=== PATIENT | female | born 1950 | race Caucasian/White ===

== ENCOUNTER → 2022-01-10 | Outpatient (CLI) | payer MEDICARE ==
--- NOTE | 2022-01-10 12:47 | P.PAINPG ---
PQRS Measure Charge Sheet Comment: HISTORY OF PRESENT ILLNESS: 71 yr old female as a referral from Dr. Cottrell events today with severe and chronic LBP 1 year secondary to DDD, disc bulges, neural foraminal stenoses and facet arthropathy for evaluation. She states her pain level is 10 out of 10 in intensity every morning, localized to the lower aspect of her lumbar spine, stabbing in character with radiation of pain to the right buttock and right lower extremity. Pain is provoked with inactivity. Pain is relieved with medications ([place], ibuprofen, Tylenol arthritis OTC), topicals, chiropractic treatments monthly, repositioning and rest. PMH: OA PSH: Cholecystectomy SH: No tobacco use, Occasional ETOH use, No illicit drug use. 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 FH: Non contributory All: NKDA Meds: See list REVIEW OF ORGAN SYSTEMS: CONSTITUTIONAL: No fevers or chills. No recent weight loss. HEENT: No visual acuity loss, eye pain, difficulties with hearing. No nosebleeds. No difficulty swallowing. RESPIRATORY: Denies any troubles with breathing or dyspnea on exertion. CARDIOVASCULAR: Denies any chest pain, palpitations, or recent heart attacks. GASTROINTESTINAL: Denies fatty food intolerance. Has change in bowel habits and gas bloat. GENITOURINARY: Denies any blood in urine. Has increased urinary frequency. NEUROLOGICAL: + numbness and tingling along the distal extremities. No seizure disorders or headaches. MUSCULOSKELETAL: + back pain SKIN: No skin cancer. No rash. PSYCHIATRIC: Denies current depression or suicidal thoughts. ENDOCRINE: Denies current thyroid disorders. Denies any blood sugar glucose intolerance. HEME/LYMPHATIC: Denies any lumps and bumps around the neck. History of deep venous thrombosis. ALLERGY/IMMUNOLOGY: No immunoglobulin therapy. No immune deficiencies. BREAST: Denies current breast lumps, pain or nipple discharge. Physical Examinations : Constitutional : Cooperative , not in acute distress . HEENT: Neck supple. No Lymphadenopathy. Normal thyroid size . Eyes no ptosis , no icterus, no photophobia . Hearing intact. Normal oropharynx. No Thrush. Respiratory : Chest clear to auscultations bilaterally. No wheezing. No rhonchi. Cardiovascular : Regular rate and rhythm , S1 / S2. No S3 . No S4. Gastrointestinal : Abdomen soft. No tenderness. Bowel sounds x 4. No organomegaly . Genitourinary : Deferred. Neurologic : Cranial nerve II to XII intact. No focal neurological deficits. Psychiatric : alert & oriented x 3. Matching mood & appropriate affect. Judgment & insight intact. Lymphatic No Lymphadenopathy. Musculoskeletal : Cervical Spine Motor strength in the deltoid and biceps: Normal right side. Normal Left side Motor strength biceps and the wrist extensors: Normal right side . Normal left side Motor strength in the triceps muscle: Normal right side. Normal left side Deep tendon reflexes: Normal at the biceps. Normal at Brachioradialis. Normal at triceps Cervical facet loading test: positive bilaterally Spurling test: positive bilaterally Neck distraction test: positive bilaterally Zack sign: positive bilaterally Lumbar spine Motor strength lower extremities ,thigh and legs 5/5 Right side , 5/5 Left side Deep tendon reflexes : Normal Knee Jerk. Normal Ankle Jerk Vertebral body tenderness over L4 Lumbar facet Loading Test: positive Right / positive Left Range of motion of the lumbar spine Flexion 30 degrees, extension 10 degrees Straight Leg Raise test: Left/ Right positive at degree Cholo test: positive right / positive left. Severe tenderness over the Sacroiliac joint on the Right / Left sides Gaenslen test: positive bilaterally Seated flexion test: positive bilaterally. Sacral spine : Severe tenderness over the Sacroiliac joint: right side / left side Range of motion: Flexion of the lumbar spine <60 degrees Range of motion: Extension of the lumbar spine <20 degrees Gaenslen's Test positive Kristian's Test positive Cholo test: positive right side / left side Thigh Thrust Test Sacral Thrust Test Imaging: MRI without contrast of the lumbar spine from 12/08/21 reviewed. Assessment/ Plan : Lumbar spondylosis Recommendation of JOSH L4-L5. May need a series of injections, up to 3 within a six-month timeframe, for optimal pain relief. Risks, benefits of procedure discussed and patient verbalized understanding. Denies aspirin or anti- coagulant use or medical history of diabetes. All questions answered. I have spent greater than 50 minutes on patient care today. Dr Gar was available by phone for the evaluation of this patient. The time was used to review the medical records including relevant urine studies and Prescription history (MAPs), review of the available imaging, evaluation and examination of the patient, coordination of care with the medical staff and if applicable referring physicians, as well as creation of the medical record Controlled Substance Measures - Controlled Substance Measures Is patient prescribed a controlled substance at discharge?: No
[2022-01-10 15:03] VITALS: BP 150/67; PULSE 61; RESP 18; TEMP 98
== END ==
LOC: PNWHC3 11:48
PROVIDERS: ATTEND Specialist
DX: M51.36 Other intervertebral disc degeneration, lumbar region (principal); M48.062 Spinal stenosis, lumbar region with neurogenic claudication; M51.26 Other intervertebral disc displacement, lumbar region; M51.24 Other intervertebral disc displacement, thoracic region; G89.29 Other chronic pain; M19.90 Unspecified osteoarthritis, unspecified site
CPT/HCPCS: 99202

== ENCOUNTER 2022-01-16 11:52 | Day surgery (SDC) | payer MEDICARE ==
[2022-01-16] MEDS ORDERED: LACTATED RINGERS 1,000 ML IV ONE (12:18)
[2022-01-16 12:23] VITALS: TEMP 97.3
[2022-01-16] MEDS ORDERED: MIDAZOLAM 2 MG/2 ML VIAL ONE (12:53)
[2022-01-16] MEDS ORDERED: fentaNYL (PF) 50 MCG/ML 2 ML AMP ONE (12:53)
[2022-01-16] MEDS ORDERED: methylPREDNISolone ACETATE 40 MG/ML 1 ML VIAL ONE (12:53)
[2022-01-16] MEDS ORDERED: IOPAMIDOL M200 10 ML VIAL ONE (12:53)
--- NOTE | 2022-01-16 13:04 | P.PCN ---
Date of Procedure: 01/16/22 Procedure(s) Performed: PREOPERATIVE DIAGNOSIS: 1- Lumbar Degenerative Disc Diseases 2-Lumbar spondylosis with Facet arthropathy without myelopathy POSTOPERATIVE DIAGNOSIS: Same as preop diagnosis. PROCEDURE 1. Lumbar epidural steroid injection under fluoroscopic guidance at the L4-5 level. (Fluoroscopy imaging was available in radiology department) 2. Lumbar epidurogram. ANESTHESIA: Local with 1% lidocaine 3 ml and , moderate sedation with intravenous Versed 1 mg ,and fentanyle 50 Mcg EBL: Minimal PROCEDURE INDICATION: The patient with low back pain and radiculitis symptoms unresponsive to conservative treatment. Fluoroscopy was used to optimize visualization of the needle placement and to maximize safety. PROCEDURE DESCRIPTION / TECHNIQUE: The patient was seen and identified in the preoperative area. Risks, benefits, complications including but not limited to infections ,bleeding ,allergic reaction to the medications ,nerve damage and not complete pain releife , and alternatives were discussed with the patient. The patient agreed to proceed with the procedure and signed the consent. IV was started, and vital signs were stable. Patient was taken to the OR and time out was completed. The patient was placed in the prone position on procedure table and a pillow was placed under the abdomen to reduce lumbar lordosis. The lumbosacral area was prepped and draped in the usual sterile fashion.ere closely monitored during the procedure. Con scious sedation was used during the procedure to decrease patients anxiety. Vital signs was monitered during the entire procedure. Using anterior-posterior fluoroscopy, the L4-5 interlaminar space was identified and the skin over this site was marked and then infiltrated with 1% lidocaine subcutaneously. Subsequently, a 20-gauge Tuohy epidural needle was inserted and advanced toward the epidural space using the ``Loss of resistance technique and guided by AP and lateral fluoroscopy. The correct needle position in the epidural space was verified with the injection of 2 mL of the water soluble contrast dye Isovue 200 contrast and observing an excellent epidurogram with the epidural spread of the dye, after negative aspiration for blood and CSF and in the absence of paresthesias. Again after negative aspiration, a 6 ml mixture containing 40 mg of Depo-medrol , and 2 ml of preservative free Normal Saline, and 2 ml of preservative free lidocaine 1% solution was injected and a washout o f epidurogram was seen. Needle was withdrawn intact, skin was cleansed, and bandages were applied. COMPLICATIONS: None DISPOSITION / PLANS: The patient was placed in a supine position and transferred to the recovery area in a stable condition for observation. There was no evidence of lower extremity motor or sensory deficit after the procedure. Patient was discharged from the recovery room after meeting discharge criteria. Home discharge instructions were given to the patient by the staff. The patient was reexamined prior to discharge. The patient will schedule a follow up in the clinic in 2-4 weeks.
[2022-01-16] MEDS ORDERED: IV FLUID CONTINUATION 800 ML IV ONE (13:07)
[2022-01-16 13:15] VITALS: RESP 16
[2022-01-16 13:25] VITALS: BP 145/75; PULSE 64
--- NOTE | 2022-01-16 17:01 | FL ---
Fluoroscopy HISTORY: Pain 1 seconds fluoroscopy time supplied to the referring clinician. 1 intraoperative C-arm images docume nt the procedure. See dictated report from anesthesia.
== END 2022-01-16 13:37 | disposition home or self-care (01) ==
LOC: ORPAIN 11:52
PROVIDERS: ATTEND Specialist
DX: M51.16 Intervertebral disc disorders with radiculopathy, lumbar region (principal); M47.26 Other spondylosis with radiculopathy, lumbar region
CPT/HCPCS: 62323; J2250; J1030; J3010; Q9966

== ENCOUNTER 2022-02-08 06:00 | Day surgery (SDC) | payer MEDICARE ==
[2022-02-08 06:25] VITALS: RESP 16; TEMP 98.2
[2022-02-08] MEDS ORDERED: IOPAMIDOL M200 10 ML VIAL ONE (06:48)
[2022-02-08] MEDS ORDERED: methylPREDNISolone ACETATE 40 MG/ML 1 ML VIAL ONE (06:48)
--- NOTE | 2022-02-08 07:07 | P.PCN ---
Date of Procedure: 02/08/22 Description of Procedure: Procedure: 1. Right sided L4-L5 Epidural steroid injection under fluoroscopic guidance, 2. Lumbar epidurogram PREOPERATIVE DIAGNOSIS: Lumbar degenerative disc disease, and Lumbar radiculopathy. POSTOPERATIVE DIAGNOSIS: Lumbar degenerative disc disease, and Lumbar radiculopathy. SURGEON: [place] ANESTHESIA: Local with 1% lidocaine, and IV sedation: None EBL: None. Specimen removed: None Fluoroscopic image: saved to electronic medical records PROCEDURE INDICATION: The patient had history of Lumbar degenerative disc disease and Lumbar radiculopathy. Patient had a previous epidural steroid injection with marginal pain relief. Failed to conservative therapy. Came here for repeat epidural steroid injection. PROCEDURE DESCRIPTION: The patient was seen and identified in the preoperative area. Risks, benefits, complications, and alternatives were discussed with the patient. The patient agreed to proceed with the procedure and signed the consent. IV was started, and vital signs were stable. Patient was taken to the procedure area, and time out was completed. The patient was placed in the prone position on procedure table and a pillow was placed under the abdomen to reduce lumbar lordosis. The lumbosacral area was prepped an d draped in the usual sterile fashion. Critical pause was taken. Vital signs were closely monitored during the procedure. Using anterior-posterior fluoroscopy, the right sided L4-L5 interlaminar space was identified, and skin and deeper tissues were localized with 1% lidocaine. Using anterior-posterior fluoroscopy, lateral fluoroscopy, and [id number] technique, a 20 gauge 3.5 Tuohy epidural needle entered the epidural space. After negative aspiration of CSF and blood with no paresthesias, 1 ml of [id number] contrast dye was injected and an excellent epidurogram was seen. Again after negative aspiration of CSF and blood with no paresthesias, 10 mL of block solution was injected into the epidural space. Block solution contained 40 mg of Depo-Medrol, and 9 mL of preservative-free normal saline. Needle was withdrawn intact, skin was cleansed, and bandages were applied. COMPLICATIONS: None. DISPOSITION / PLANS: The patient was placed in a supine position and transferred to the recovery area in a stable condition for observation. Patient was discharged from the recovery room after meeting discharge criteria. Home discharge instructions given to the patient by the staff. The patient was reexamined prior to discharge. The patient will schedule a follow up in the clinic in 4 weeks. Note: If patient not noticed any good pain relief with the epidural steroid injection, plan to do the right side sacroiliac joint injection. Discussed with the patient, and patient understood.
[2022-02-08] MEDS ORDERED: LACTATED RINGERS 1,000 ML IV SCH (07:15)
[2022-02-08 07:20] VITALS: BP 129/65; PULSE 56
--- NOTE | 2022-02-08 07:47 | FL ---
Fluoroscopy History: LUM EPID STEROID INJ LUM EPID STEROID INJ. [address] Jameson. 1 image.
== END 2022-02-08 07:25 | disposition home or self-care (01) ==
LOC: ORPAIN 06:00
DX: M51.16 Intervertebral disc disorders with radiculopathy, lumbar region (principal); F32.A Depression, unspecified; M19.90 Unspecified osteoarthritis, unspecified site; Z90.49 Acquired absence of other specified parts of digestive tract
CPT/HCPCS: 62323; J1030; Q9966

== ENCOUNTER → 2022-03-07 | Outpatient (CLI) | payer MEDICARE ==
[2022-03-07 10:28] VITALS: BP 112/69; PULSE 67; RESP 18; TEMP 98.7
--- NOTE | 2022-03-07 13:35 | P.PAINPG ---
PQRS Measure Charge Sheet Comment: A 71 yr old female with a history of severe and chronic low back pain secondary to lumbar degenerative disc diseases and lumbar spondylosis with facet arthropathy presents today for evaluation s/p R paramedian L4-L5. Pt states she experienced 100% pain relief x last 4 weeks s/p procedure. Pain level is cur rently at 0/10 in intensity. Pain is provoked by walking for periods of 30 min or more. Pain is alleviated with medications ([place] 5/325mg, Baclofen, Ibuprofen), injections, chiropractic treatments weekly (last visit 5 days ago), repositioning and rest. Interventional pain procedures completed include R paramedian L4-L5 x 1 Patient is currently on [place] 5/325mg, Baclofen, Ibuprofen Patient denies any side effects of the medication(s), denies excessive drowsiness or sleepiness, denies suicidal ideation and reports that the current pain medication is helping to control the pain and improve activities of daily living. Patient denies any motor or sensory deficits. Patient denies any fever or night sweats, denies any change in the bowel movements or urination. Physical Examination: -Constitutional: Cooperative. Not in acute distress . - Neurologic: Cranial nerve II to XII intact. No focal neurological deficits. - Psychatric: Alert & oriented x 3. Matching mood & appropriate affect. Leydi gment and insight intact. - Musculoskeletal: Cervical spine: Muscle bulk/ tone/ strength in the bilateral upper extremities normal Vertebral body tenderness to palpation over Spurling test positive Distraction test positive Facet loading test positive Thoracic spine Muscle bulk / tone/ strength in the bilateral paraspinal muscles normal Vertebral body tender to palpation over Facet loading test positive Lumbar spine: Motor bulk/ tone/ strength lower extremities , thigh and legs : 5/5 Deep tendon reflexes : Normal Knee Jerk. Normal Ankle Jerk . Vertebral body tenderness to palpation over L4 w deep palpation Lumbar Facet Loading Test positive Straight Leg Raise: positive at 30 degrees right side/ left side Gaenslen's Test positive Sacral spine : Severe tenderness over the Sacroiliac joint: right side / left side Range of motion: Flexion of the lumbar spine <60 degrees Range of motion: Extension of the lumbar spine <20 degrees Gaenslen's Test positive Kristian's Test positive Cholo test: positive right side / left side Thigh Thrust Test Sacral Thrust Test Assessment and plan: Chronic low back pain secondary to lumbar degenerative disc disease , lumbar spondylosis with facet arthropathy without myelopathy Pt exhibited sufficient and satisfactory pain relief w the prior procedure. She will continue home pain mgmt modifying factors in the interim w exacerbations and may return to our clinic on an as needed basis All patient questions answered MAPS reviewed and it was appropriate. I have spent less than 30 minutes on patient care today. Dr Gar was available by phone for the evaluation of this patient. The time was used to review the medical records including relevant urine studies and Prescription history (MAPs), review of the available imaging, evaluation and examination of the patient, coordination of care with the medical staff and if applicable referring physicians, as well as creation of the medical record PQRS Narrative: Hx Alcohol Use (MH) Yes: ONECE A WEEK Home Medications: Ambulatory Orders Eszopiclone [Lunesta] 3 mg PO HS 01/16/22 Sertraline [Zoloft] 50 mg PO DAILY 01/16/22 estradioL 0.25 mg PO DAILY 01/16/22 Baclofen 5 mg PO DAILY 30 Days #30 tab 01/22/22 HYDROcodone/APAP 5-325MG [[place] 5-325] 1 tab PO Q6HR PRN 3 Days #12 tab 01/22/22 Controlled Substance Measures - Controlled Substance Measures Is patient prescribed a controlled substance at discharge?: No
== END ==
LOC: PNWHC3 09:59
PROVIDERS: ATTEND Specialist
DX: M51.36 Other intervertebral disc degeneration, lumbar region (principal); G89.29 Other chronic pain; M47.816 Spondylosis without myelopathy or radiculopathy, lumbar region
CPT/HCPCS: 99211

== ENCOUNTER → 2022-04-23 | Outpatient (CLI) | payer MEDICARE ==
[2022-04-23 12:00] VITALS: BP 120/60; PULSE 64; RESP 18; TEMP 98
--- NOTE | 2022-04-23 14:50 | P.PAINPG ---
Objective - Vital Signs Vital signs: Intake & Output 04/22/22 04/23/22 04/23/22 18:59 06:59 18:59 Weight 68.039 kg PQRS Measure Charge Sheet Comment: A 71 yr old female with a history of severe and chronic low back pain secondary to lumbar degenerative disc diseases and lumbar spondylosis with facet arthropathy without myelopathy presents today for LBP evaluation. 90% pain relief x 6 wks s/p procedure. Pain level is currently at 10/10 in intensity, constant, localized in lower lumbar spine, stabbing/ sharp in character w shooting towards BL hips. Pain is provoked by standing from a sitting position. Pain is alleviated with chiropractic treatments x 6 mo in Mar 2022 (she stopped due to cataract surgery), heat, medications, optical, sitting, walking, repositioning and rest. Pt states pain medication is ineffective and would like to try something else to alleviate pain. Interventional pain procedures completed include ED L4-5 x 2. Patient is currently on Tramadol prn Patient denies any side effects of the medication(s), denies excessive drowsiness or sleepiness, denies suicidal ideation and reports that the current pain medication is helping to control the pain and improve activities of daily living. Patient denies any motor or sensory deficits. Patient denies any fever or night sweats, denies any change in the bowel movements or urination. Physical Examination: -Constitutional: Cooperative. Not in acute distress . - Neurologic: Cranial nerve II to XII intact. No focal neurological deficits. - Psychatric: Alert & oriented x 3. Matching mood & appropriate affect. Judgment and insight intact. - Musculoskeletal: Cervical spine: Muscle bulk/ tone/ strength in the bilateral upper extremities normal Vertebral body tenderness to palpation over Spurling test positive Distraction test positive Facet loading test positive Thoracic spine Muscle bulk / tone/ strength in the bilateral paraspinal muscles normal Vertebral body tender to palpation over Facet loading test positive Lumbar spine: Motor bulk/ tone/ strength lower extremities , thigh and legs : 5/5 Deep tendon reflexes : Normal Knee Jerk. Normal Ankle Jerk . Vertebral body tenderness to palpation over Lumbar Facet Loading Test positive over BL L4-L5> L5-S1 w jump reflex Straight Leg Raise: positive at 30 degrees right side/ left side Gaenslen's Test positive Sacral spine : Severe tenderness over the Sacroiliac joint: right side / left side Range of motion: Flexion of the lumbar spine <60 degrees Range of motion: Extension of the lumbar spine <20 degrees Gaenslen's Test positive Kristian's Test positive Cholo test: positive right side / left side Thigh Thrust Test Sacral Thrust Test Imaging: MRI without contrast from 12/08/21 reviewed Assessment and plan: Chronic low back pain secondary to lumbar degenerative disc disease , lum bar spondylosis with facet arthropathy without myelopathy Recommendation of BL MBB L4-L5, L5-S1 #1. Patient may need a series of injections, up to the RFA, for optimal pain relief. Risks, benefits of procedure discussed and pt verbalized understanding. Denies anticoagulant use or medical history of diabetes. Chronic and current use of high-risk medication (Opioids). The patient was counseled about risk of opioid use, psychological risk associated with opioids and was orally counseled to not overuse , divert or sell medications. Pt is to store medication in a safe location. The patient is counseled against driving while using narcotic medications and also not to use alcohol or any illicit recreational drugs. Patient verbalized understanding that the lack of compliance will result in failure to renew narcotic prescription(s) as well as possible discharge from the clinic Diagnoses, prognosis and treatment options including but not limited to physical therapy, surgical interventions, interventional therapies and medication management including narcotics and adjuvant medication were discussed. All patient questions answered MAPS reviewed and it was appropriate. Opiate agreement signed today 04/23/22 Prescription refill for [place] 7.5/325mg #60 w 1 RF I have spent less than 30 minutes on patient care today. Dr Gar was available by phone for the evaluation of this patient. The time was used to review the medical records including relevant urine studies and Prescription his tory (MAPs), review of the available imaging, evaluation and examination of the patient, coordination of care with the medical staff and if applicable referring physicians, as well as creation of the medical record PQRS Narrative: Hx Alcohol Use (MH) Yes: ONECE A WEEK Home Medications: Ambulatory Orders Eszopiclone [Lunesta] 3 mg PO HS 01/16/22 Sertraline [Zoloft] 50 mg PO DAILY 01/16/22 estradioL 0.25 mg PO DAILY 01/16/22 Baclofen 5 mg PO DAILY 30 Days #30 tab 01/22/22 HYDROcodone/APAP 5-325MG [[place] 5-325] 1 tab PO Q6HR PRN 3 Days #12 tab 01/22/22 HYDROcodone/APAP 7.5-325MG [[place] 7.5-325] 1 tab PO Q12H PRN 30 Days #60 tab 04/23/22 HYDROcodone/APAP 7.5-325MG [[place] 7.5-325] 1 tab PO Q12HR PRN 30 Days #60 tab 04/23/22 Controlled Substance Measures - Controlled Substance Measures Is patient prescribed a controlled substance at discharge?: Yes When asked, does pt state using other controlled substances?: Yes If prescribed controlled substance>3 days was MAPS reviewed?: Yes If Rx opioid, was Start Talking consent form obtained?: Yes Was information provided regarding opioid addiction?: Yes
== END ==
LOC: PNWHC3 08:57
PROVIDERS: ATTEND Specialist
DX: M51.36 Other intervertebral disc degeneration, lumbar region (principal); M47.816 Spondylosis without myelopathy or radiculopathy, lumbar region; G89.29 Other chronic pain; Z79.891 Long term (current) use of opiate analgesic
CPT/HCPCS: 99211

== ENCOUNTER 2022-05-01 05:55 | Day surgery (SDC) | payer MEDICARE ==
[2022-05-01 06:23] VITALS: TEMP 97.3
[2022-05-01] MEDS ORDERED: ROPIVACAINE 5 MG/ML 20 ML AMPULE ONE (06:59)
[2022-05-01] MEDS ORDERED: methylPREDNISolone ACETATE 40 MG/ML 1 ML VIAL ONE (06:59)
--- NOTE | 2022-05-01 07:18 | P.PCN ---
Date of Procedure: 05/01/22 Procedure(s) Performed: PREOPERATIVE DIAGNOSIS : 1- Lumbar spondylosis with Facet Arthropathy without myelopathy . 2- Lumber degenerative disc disease POSTOPERATIVE DIAGNOSIS: 1- Lumbar spondylosis with Facet Arthropathy without myelopathy . 2- Lumber degenerative disc disease PROCEDURE: Diagnostic bilateral L3 , L4 , and L5 medial branch block under fluoroscopy guidance(fluoroscopy images available in the radiology Department ) ( To target the facet joint between bilateral L4-5 , and L5-S1 ) ANESTHESIA: Local infiltration with ropivacaine 0.5% 6 mL only EBL: Minimal COMPLICATION: None PROCEDURE INDICATION: Chronic low back pain secondary to Facet arthropathy unresponsive to conservative treatment. PROCEDURE DESCRIPTION: the patient was seen and identified in the preop holding area , risks and benefits and possible complications of the procedure and alternative were discussed with the patient, and the patient agreed to proceed with the procedure and signed the consent and vital signs monitored duri ng the procedure and fluoroscopy was used to maximize the benefit and accuracy of the needle placement,, patient was taken to the procedure room and placed in prone position vital signs monitored in the back prepped with chlorhexidine X3 then under strict sterile technique using a right oblique fluoroscopy ,the junction of the transverse process and the superior articulating process of the right L3 , L4 , and L5 vertebra which corresponding to the fluoroscopy image of the eye of the Kiko dog on the block side for the medial branches and subsequently , after local infiltration of skin and subcu tissuies with Ropivacaine 0.5 % , one mL at each level ,then 22-gauge Quincke-type needles , 3 needle was used , each one of them placed at the junction of the base of the transverse process and the superior articular process at the appropriate level, and the needle was advanced until the periosteum contacted, needle placement confirmed with AP oblique and lateral view and after appropriate needle placement confirmed, and after negative aspiration for heme and CSF and there was no paresthesia 1-1/2 mL of Ropivacaine 0.5% mixed with 20 mg Depo- Medrol , then half mL injected at each level after negative aspiration the needle subsequently removed and the same procedure repeated for the left side at left side at L3 , L4 and L5 levels. At the end of the procedure and the needles removed and a bandage applied after the skin was cleaned the cleaning solution patient taken to recovery room in stable condition and monitors in the recovery room for 20-30 minutes and discharged home in stable condition after discharge criteria met and patient will follow up with the pain clinic in 2-4 weeks
[2022-05-01 07:39] VITALS: BP 124/67; PULSE 62; RESP 14
--- NOTE | 2022-05-01 08:40 | FL ---
Fluoroscopy History: KASSIE LUM FACET BLOCK kassie lumbar facet 7 sec fl time used
== END 2022-05-01 07:42 | disposition home or self-care (01) ==
LOC: ORPAIN 05:55
PROVIDERS: ATTEND Specialist
DX: M51.36 Other intervertebral disc degeneration, lumbar region (principal); M47.816 Spondylosis without myelopathy or radiculopathy, lumbar region; G89.29 Other chronic pain
CPT/HCPCS: 64494 ×2; 64493; J1030; J2795

== ENCOUNTER 2022-06-05 06:18 | Day surgery (SDC) | payer MEDICARE ==
[~2022-06-05 06:18] MED LIST: LACTATED RINGERS 1,000 ML IV SCH; LIDOCAINE 1% (10MG/ML) FOR IV START INTRADERMA PRN
[2022-06-05 06:44] VITALS: RESP 18; TEMP 96.9
[2022-06-05] MEDS ORDERED: ROPIVACAINE 5 MG/ML 20 ML AMPULE ONE (07:31)
[2022-06-05] MEDS ORDERED: methylPREDNISolone ACETATE 40 MG/ML 1 ML VIAL ONE (07:31)
--- NOTE | 2022-06-05 07:46 | P.PCN ---
Date of Procedure: 06/05/22 Procedure(s) Performed: PREOPERATIVE DIAGNOSIS : 1- Lumbar spondylosis with Facet Arthropathy without myelopathy . 2- Lumber degenerative disc disease POSTOPERATIVE DIAGNOSIS: 1- Lumbar spondylosis with Facet Arthropathy without myelopathy . 2- Lumber degenerative disc disease PROCEDURE: Diagnostic bilateral L3 , L4 , and L5 medial branch block under fluoroscopy guidance(fluoroscopy images available in the radiology Department ) ( To target the facet joint between bilateral L4-5 , and L5-S1 )# 2nd ANESTHESIA: Local infiltration with ropivacaine 0.5% 6 mL only EBL: Minimal COMPLICATION: None PROCEDURE INDICATION: Chronic low back pain secondary to Facet arthropathy unresponsive to conservative treatment. PROCEDURE DESCRIPTION: the patient was seen and identified in the preop holding area , risks and benefits and possible complications of the procedure and alternative were discussed with the patient, and the patient agreed to proceed with the procedure and signed the consent and vital signs monitored during the procedure and fluoroscopy was used to maximize the benefit and accuracy of the needle placement,, patient was taken to the procedure room and placed in prone position vital signs monitored in the back prepped with chlorhexidine X3 then under strict sterile technique using a right oblique fluoroscopy ,the junction of the transverse process and the superior articulating process of the right L3 , L4 , and L5 vertebra which corresponding to the fluoroscopy image of the eye of the Kiko dog on the block side for the medial branches and subsequently , after local infiltration of skin and subcu tissuies with Ropivacaine 0.5 % , one mL at each level ,then 22-gauge Quincke-type needles , 3 needle was used , each one of them placed at the junction of the base of the transverse process and the superior articular process at the appropriate level, and the needle was advanced until the periosteum contacted, needle placement confirmed with AP oblique and lateral view and after appropriate needle placement confirmed, and after negative aspiration for heme and CSF and there was no paresthesia 1-1/2 mL of Ropivacaine 0.5% mixed with 20 mg Depo-Medrol , then half mL injected at each level after negative aspiration the needle subsequently removed and the same procedure repeated for the left side at left side at L3 , L4 and L5 levels. At the end of the procedure and the needles removed and a bandage applied after the skin was cleaned the cleaning solution patient taken to recovery room in stable condition and monitors in the recovery room for 20-30 minutes and discharged home in stable condition after discharge criteria met and patient will follow up with the pain clinic in 2-4 weeks
[2022-06-05 07:54] VITALS: BP 123/64; PULSE 56
--- NOTE | 2022-06-05 09:38 | FL ---
Fluoroscopy INDICATION: Pain FINDINGS: Fluoroscopy time: 8 seconds. Images obtained: 4. IMPRESSIONS: 1. Documentation of fluoroscopy.
== END 2022-06-05 08:05 | disposition home or self-care (01) ==
LOC: ORPAIN 06:18
PROVIDERS: ATTEND Specialist
DX: M47.816 Spondylosis without myelopathy or radiculopathy, lumbar region (principal); M51.36 Other intervertebral disc degeneration, lumbar region
CPT/HCPCS: 64493; 64494; J1030; J2795

== ENCOUNTER → 2022-06-27 | Outpatient (CLI) | payer MEDICARE ==
--- NOTE | 2022-06-27 13:10 | P.PN ---
Subjective Progress Note Date: 06/27/22 At this is follow-up visit for this 72 years old female with a chronic history of severe low back pain she is no swelling lumbar spondylosis with lumbar facet arthropathy and lumbar degenerative disc disease, recently we have done diagnostic medial branch block lumbar area at L4 5 and L5-S1 bilaterally,x2 , she reported that she gets more than 80% improvement of her pain after the first diagnostic medial branch block as she gets similar result after the second block, and she reported that the pain relief lasted for a few hours after the block, she denies any motor or sensory deficits denies any fever or night sweats she denies any change in the bowel movement or urination she continue to use ibuprofen and tramadol for pain and she uses ice and heat for pain she already done chiropractors with only minimal benefit Objective - Vital Signs Vital signs: Intake & Output 06/26/22 06/27/22 06/27/22 18:59 06:59 18:59 Weight 68.039 kg - Exam Physical Examinations : -Constitutiona : Cooperative , not in acute distress . -HEENT : nech : supple , no Lymphadenopathy , normal thyroid size . : eyes : no ptosis , no icterus, no photophobia . - neurologic : Cranial nerve II to XII intact , no focal neurological deffecit . -psychatric : alert , oriented X 3 , appropriate affect , intact judgment and insight . -Lymphatic : no Lymphadenopathy . - musculoskeltal : Lumber spine moter stegnth lower extremities ,thigh and legs 5/5 Right side , 5/5 Left side deep tendon reflexes : normal Knee Jerk , normal ankle Jerk lumber facet Loading Test =positive Right , positive Left Range of motion of the lumbar spine Fl exion 60 ,extension 10 strait leg raising test = negative bilaterally Fabere test= negative bilaterally Assessment and Plan Plan: Assessment and plan= chronic low back pain secondary to lumbar degenerative disc disease , lumbar spondylosis with lumbar facet arthropathy . she had 80% improvement of her low back pain after diagnostic medial branch block lumbar area x2 at L4 5 and L5-S1 She could benefit from RFA of the medial branch lumbar area at L4 5 and L5-S1 bilaterally. Procedure risk and benefits and alternatives discussed with the patient she agreed with proceeding Time with Patient: Less than 30
[2022-06-27 13:19] VITALS: BP 151/76; PULSE 86; RESP 16; TEMP 97.9
== END | disposition home or self-care (01) ==
LOC: PNWHC3 12:34
PROVIDERS: ATTEND Specialist
DX: M51.36 Other intervertebral disc degeneration, lumbar region (principal); M46.96 Unspecified inflammatory spondylopathy, lumbar region; M47.896 Other spondylosis, lumbar region
CPT/HCPCS: 99211

== ENCOUNTER 2022-10-17 12:34 | Day surgery (SDC) | payer MEDICARE ==
--- NOTE | 2022-10-17 11:30 | P.GSHP ---
History of Present Illness H&P Date: 10/17/22 Chief Complaint: History of colon cancer This 72-year-old female with. History of colon cancer. Patient will stay for Port-A-Cath insertion. She is requiring IV infusion therapy. Past Medical History Past Medical History: Cancer, GERD/Reflux, Osteoarthritis (OA) Additional Past Medical History / Comment(s): Arthritis- generalized and back and neck. pain,colon CA, liver mass "spot", sinus issues occasionally. allergies. History of Any Multi-Drug Resistant Organisms: None Reported Past Surgical History: Cholecystectomy, Hysterectomy Additional Past Surgical History / Comment(s): partial hysterectomy just uterus removed, biltateral cataracts removed. Past Anesthesia/Blood Transfusion Reactions: No Reported Reaction Smoking Status: Never smoker - Past Family History Mother Additional Family Medical History / Comment(s): Parkinsons Father Family Medical History: Cancer Additional Family Medical History / Comment(s): prostate Medications and Allergies Home Medications Medication Instructions Recorded Confirmed Type Eszopiclone [Lunesta] 3 mg PO HS 01/16/22 10/11/22 History Sertraline [Zoloft] 100 mg PO DAILY 01/16/22 10/11/22 History estradioL 0.25 mg PO DAILY 01/16/22 10/11/22 History traMADol HCL 50 mg PO DAILY 06/04/22 10/11/22 History Biotin [Ykmp-Ktol-Rmybo] 10,000 mcg PO DAILY 09/04/22 10/11/22 History Ferrous Sulfate [Feosol] 325 mg PO DAILY 09/04/22 10/11/22 History Omeprazole [PriLOSEC] 20 mg PO DAILY 09/04/22 10/11/22 History Acetaminophen [Tylenol Extra 500 mg PO DAILY PRN 10/11/22 10/11/22 History Strength] Allergies Allergy/AdvReac Type Severity Reaction Status Date / Time No Known Allergies Allergy Verified 10/11/22 09:18 Surgical - Exam - General well developed, well nourished, no distress - Eyes PERRL - ENT normal pinna - Neck no masses - Respiratory normal expansion - Cardiovascular Rhythm: regular - Abdomen Abdomen: soft, non tender Assessment and Plan Plan: History of colon cancer. We'll perform Port-A-Cath insertion.
[~2022-10-17 12:34] MED LIST changes: +ACETAMINOPHEN TAB 500 MG TAB PO PRN; +HEPARIN SODIUM,PORCINE/PF 5,000 UNIT/0.5 ML SYRINGE SQ PRN; +Pre Op ABX Message 1 EACH MISC MISCELLANE ONE; +fentaNYL (PF) 50 MCG/ML 2 ML AMP IV PRN
[2022-10-17 13:00] VITALS: RESP 16; TEMP 96.9
[2022-10-17] MEDS ORDERED: ONDANSETRON 4 MG/2 ML VIAL ONE (13:05)
[2022-10-17] MEDS ORDERED: DEXAMETHASONE SOD PHOSPHATE 4 MG/ML 1 ML VIAL IV ONE (13:16)
[2022-10-17] MEDS ORDERED: MIDAZOLAM 2 MG/2 ML VIAL ONE (13:26)
[2022-10-17] MEDS ORDERED: KETOROLAC 15 MG/ML 1 ML VIAL ONE (13:26)
[2022-10-17] MEDS ORDERED: fentaNYL (PF) 50 MCG/ML 2 ML AMP ONE (13:26)
[2022-10-17] MEDS ORDERED: PROPOFOL 10 MG/ML 20 ML VIAL IV ONE (13:26)
[2022-10-17] MEDS ORDERED: SODIUM CHLORIDE 0.9% 50 ML with ceFAZolin 2,000 MG IV ONE ×2 (13:35)
[2022-10-17] MEDS ORDERED: BUPIVACAIN-EPI 0.25%-1:200,000 30 ML VIAL SQ ONE ×2 (13:46→13:49)
[2022-10-17] MEDS ORDERED: HEPARIN SODIUM,PORCINE 100 UNIT/ML 5 ML VIAL IV ONE ×2 (13:46→13:49)
[2022-10-17 14:38] VITALS: BP 114/62; PULSE 59
--- NOTE | 2022-10-17 14:44 | XR ---
EXAMINATION TYPE: XR chest 1V portable DATE OF EXAM: 10/17/2022 Comparison: None Clinical History: 72 year-old female line placement Findings: Heart normal size. Aorta and pulmonary vasculature within normal limits. Right anterior chest wall in jection port with subclavian access and catheter tip at the upper to mid SVC level. No consolidation, pneumothorax, or pleural effusion. Impression: Right anterior chest wall injection port with subclavian access and catheter tip at the upper to mid SVC. No acute cardiopulmonary process seen.
--- NOTE | 2022-10-17 15:25 | FL ---
EXAMINATION TYPE: FL guided central line placemt DATE OF EXAM: 10/17/2022 FLUOROSCOPY Fluoroscopy time of 7 seconds was used during right-sided Port-A-Cath placement. 1 image/s document/ s the procedure. Total DAP: 0.06
== END 2022-10-17 15:13 | disposition home or self-care (01) ==
LOC: OR 12:34
PROVIDERS: ATTEND Surgery
DX: Z45.2 Encounter for adjustment and management of vascular access device (principal); K21.9 Gastro-esophageal reflux disease without esophagitis; M19.90 Unspecified osteoarthritis, unspecified site; Z90.49 Acquired absence of other specified parts of digestive tract; Z90.710 Acquired absence of both cervix and uterus; Z98.41 Cataract extraction status, right eye; Z98.42 Cataract extraction status, left eye; Z85.038 Personal history of other malignant neoplasm of large intestine; Z81.8 Family history of other mental and behavioral disorders; Z80.42 Family history of malignant neoplasm of prostate
CPT/HCPCS: 77001; 71045; 36561; J1642; J1100; J2405; J0690; J1644

== ENCOUNTER → 2023-05-30 | Outpatient (CLI) | payer MEDICARE ==
[2023-05-30 12:26] LABS: African American GFR (CKD) 88 (>60 ml/min/1.73 sqM); Blood Urea Nitrogen 13 mg/dL (7-17); Non-African American GFR(CKD) 76 (>60 ml/min/1.73 sqM)
--- NOTE | 2023-05-30 14:44 | CT ---
EXAMINATION TYPE: CT ChestAbdPelvis w con CT DLP: 578 mGycm, Automated exposure control for dose reduction was used. DATE OF EXAM: 05/30/2023 1:58 PM COMPARISON: Chest radiograph 10/17/2022 CLINICAL INDICATION:Female, 72 years old with history of C18.2 MALIGNANT NEOPLASM OF ASCENDING COLON; PHH, f/u colon ca Technique: Multiple axial images of the chest, abdomen, and pelvis were obtained following the intrav enous administration of 100 mL Isovue-300. Oral contrast administered. Two-dimensional coronal and sa gittal reconstructions were obtained. Findings: CHEST: LUNGS/ PLEURA: No pleural effusion, pneumothorax, focal consolidation. No suspicious pulmonary nodule or mass. AIRWAY: Patent and unremarkable.. HEART: Size within normal limits. No pericardial effusion. MEDIASTINUM: No evidence of adenopathy. VASCULATURE: No aortic aneurysm. Right chest wall Mediport with distal tip terminating in the mid SV C. MUSCULOSKELETAL: No acute osseous abnormalities. No aggressive osseous lesion. SOFT TISSUES/LYMPH NODES: Unremarkable. LOWER NECK: No significant findings. ABDOMEN: ABDOMEN LIVER: Hypodense fluid collection within the right hepatic lobe with a few foci of internal gas. This measures 4.3 x 3.3 cm (series 6, image 61). GALLBLADDER AND BILE DUCTS: The gallbladder is surgically absent. Mild intrahepatic ductal dilatation within the inferior right hepatic lobe. Pneumobilia redemonstrated. PANCREAS: Unremarkable. SPLEEN: Top end of normal for size measuring 13.7 cm in CC dimension. ADRENAL GLANDS: Unremarkable. KIDNEYS AND URETERS: No evidence of hydronephrosis or renal calculus. The kidneys enhance symmetrical ly. PELVIS BLADDER: Unremarkable REPRODUCTIVE: The uterus is surgically absent. ABDOMEN & PELVIS STOMACH AND BOWEL: Stomach and duodenum are unremarkable. Few scattered colonic diverticula without e vidence for acute diverticula. Enteric contrast reaches the descending colon. Postsurgical changes fr om partial hemicolectomy of the right colon. No evidence of bowel obstruction. PERITONEUM: No evidence of pneumoperitoneum or free fluid. There are some stranding identified within the right lower quadrant paracolic gutter. 2.0 x 1.9 cm soft tissue lesion identified within the rig ht anterior lower abdomen (series 6, image 82). VASCULATURE: Mild atherosclerotic calcifications are present throughout the abdominal aorta and its b ranches. MUSCULOSKELETAL: No acute osseous abnormalities. No aggressive osseous lesion. Degenerative changes a t L5-S1. Grade 1 anterolisthesis of L4 on L5 without evidence of pars defect. LYMPH NODES: No gross evidence for lymphadenopathy. SOFT TISSUE/ABDOMINAL WALL: Postsurgical changes of the midline anterior, wall with likely scarring. IMPRESSION: 1. Postsurgical changes from hemicolectomy with a right anterior lower abdomen 2.0 x 1.9 cm soft tis christina mass in the mesentery concerning for recurrence/metastasis. Additional stranding within the right paracolic gutter which may result postsurgical change versus developing metastasis. Correlation with prior imaging is recommended. 2. Fluid collection within the right hepatic lobe measuring 4.3 x 3.3 cm with few foci of internal ga s suggestive of abscess versus recently treated metastatic lesion. Correlate with clinical history. A [place] level critical message alert has been initiated for [facility] via the [employer] Results System on 05/30/2023 2:41 PM. This message alert has been sent to [facility] via the prefe rences provided by the clinician for the receipt of Radiology Critical Findings. Message ID [id number].
== END | disposition home or self-care (01) ==
LOC: RADCTMAIN 11:54
PROVIDERS: ATTEND Internal Medicine Hematology & Oncology
DX: C18.2 Malignant neoplasm of ascending colon (principal); Z90.49 Acquired absence of other specified parts of digestive tract
CPT/HCPCS: 82565; 84520; 71260; 74177; 36415; Q9967

== ENCOUNTER → 2024-05-26 | Outpatient (CLI) | payer MEDICARE ==
[2024-05-26 14:14] LABS: African American GFR (CKD) 75 (>60 ml/min/1.73 sqM); Blood Urea Nitrogen 17 mg/dL (7-17); Non-African American GFR(CKD) 65 (>60 ml/min/1.73 sqM)
--- NOTE | 2024-05-26 19:36 | CT ---
EXAMINATION TYPE: CT ChestAbdPelvis w con CT DLP: 712.4 mGycm, Automated exposure control for dose reduction was used. DATE OF EXAM: 05/26/2024 3:38 PM COMPARISON: None. CLINICAL INDICATION: Female, 73 years old with history of C18.9 MALIGNANT NEOPLASM OF COLON; PHH, Fol low up to check tumor growth. Technique: CT ChestAbdPelvis w con; Multiple axial images were obtained. Two-dimensional coronal and sagittal reconstructions were obtained. Contrast used:100ml mL of Isovue 300 with IV Contrast, (None if empty) Oral contrast used: with Oral Contrast Findings: CHEST: LUNGS/ PLEURA: Innumerable pulmonary nodules throughout the lungs (greater than 50 which are new from prior exam. Examples include right upper lobe 17 mm, right lower lobe 18 mm, left upper lobe 24 mm, left lower lobe 18 mm AIRWAY : Patent and unremarkable. HEART: Size within normal limits. MEDIASTINUM: No gross evidence of adenopathy. VASCULATURE: No aortic aneurysm. Right chest wall [id number] tip terminating in the superior vena cava. MUSCULOSKELETAL: No acute osseous abnormalities. SOFT TISSUES/LYMPH NODES: Unremarkable. LOWER NECK: No significant findings. ABDOMEN: ABDOMEN LIVER: Spectra posttreatment changes to the liver with cholecystectomy clips. GALLBLADDER AND BILE DUCTS: Unremarkable. PANCREAS: Unremarkable. SPLEEN: Unremarkable. ADRENAL GLANDS: Unremarkable. KIDNEYS AND URETERS: No evidence of hydronephrosis or renal calculus. The ureters are unremarkable. PELVIS BLADDER: Unremarkable REPRODUCTIVE: Enlarged bilateral ovaries measuring up to 7.6 cm on the right and 4.4 cm on the left. PELVIS STOMACH AND BOWEL: No evidence of bowel obstruction. PERITONEUM/RETROPERITONEUM: No evidence of pneumoperitoneum or free fluid. Omental soft tissue nodule s in the left upper quadrant the largest measuring up to 20 mm. Omental caking of the right anterior abdomen large conglomerate soft tissue mass measuring 13.5 x 3.2 cm. VASCULATURE: No evidence of aortic aneurysm. MUSCULOSKELETAL: No acute osseous abnormalities. Mild disc degeneration changes are present throughou t the thoracolumbar spine. Grade 1 anterolisthesis of L4 and L5. LYMPH NODES: No gross evidence for lymphadenopathy. SOFT TISSUE/ABDOMINAL WALL: Soft tissue thickening near the site of prior PEG tuber in the abdominal wall measuring 15 x 20 mm IMPRESSION: 1. Progression of disease with innumerable pulmonary nodules throughout the lungs, conglomerate omen kathie caking, left upper quadrant soft tissue nodules along the mesentery, suspected deposit in the ant erior abdominal wall near the site of prior SPECT and PEG tube. Soft tissue thickening near the site of suspected prior PEG tube relate for metastatic focus. 2. Enlarged bilateral ovarian lesions new from prior possibly representing cysts. Complete evaluatio n with MRI IV contrast if clinically necessary could provide further evaluation. [facility], Workstation: [id number], 05/26/2024 7:34 PM
== END | disposition home or self-care (01) ==
LOC: RADCTMAIN 13:29
PROVIDERS: ATTEND Internal Medicine
CPT/HCPCS: 36415; 71260; 74177; 82565; 84520